=== PATIENT | female | born 1995 | race Asian ===

== ENCOUNTER 2024-10-18 17:17 | Emergency (ER) | payer OTHER ==
[~2024-10-18] VITALS: Ht 152.4 cm; Wt 43.2 kg
[2024-10-18 17:26] VITALS: BP 109/76; PULSE 95; RESP 16; O2SAT 99
--- NOTE | 2024-10-18 18:04 | Physician Documentation ---
History of Present Illness ~ Chief Complaint: Mechanical Fall Stated Complaint: FALL Time Seen by MD: 17:38 Primary Medical Doctor: joseph MOSS Patient is seen today with complaints of having slipped and fallen and hitting her lower lip on a rock while hiking [place] with her boyfriend. Patient states her lower lip is quite swollen and has a laceration just inferior to her lower lip. Patient has no other concern or complaint at this time. Tetanus within 5 Years?: No Medication Reconciliation Allergies: Coded Allergies: No Known Allergies (Unverified , 10/18/24) Review of Systems Constitutional: Denies: chills, fever, weakness Eyes: Denies: pain, blurred vision ENT: Denies: ear pain, nose pain, throat pain, mouth pain Respiratory: Denies: cough, shortness of breath Cardiovascular: Denies: chest pain, palpitations Gastrointestinal: Denies: abdominal pain, nausea, vomiting Genitourinary: Denies: burning, dysuria Female Genitalia: Denies: vaginal discharge, pelvic pain Neurological: Denies: headache, dizziness Musculoskeletal: Denies: pain, swelling Integumentary: Denies: rash, lesions Allergic/Immunologic: Denies: hives, itching Hematologic/Lymphatic: Denies: no symptoms reported Psychiatric: Denies: depression, anxiety Physical Exam Vital Signs: Temperature: 98.1, Source: Temporal, Heart Rate: 95, Respiratory Rate: 16, BP: 109/76, Pulse Oximetry: 99, Weight: 43.180 Oxygen Flow Rate: 0 Physical Exam General: Awake and Alert, no acute distress. HEENT: Conjunctiva pink, Sclera clear, Mucus Membranes moist. Neck: Supple without masses and tenderness. Resp: Unlabored. Lungs clear to auscultation bilaterally. Heart: Regular Rate and rhythm, normal S1 and S2 without murmur, rub or gallop. Musculoskeletal: Patient on exam does have some superficial bruising and very mild swelling of the right anterior knee with mild abrasion. Patient has full flexion and extension of the right knee and is able to bear weight and has mild tenderness to palpation anteriorly of the patella and proximal tibia. Patient is neurovascularly intact distally. Motor function intact distally. Extremities: No cyanosis,clubbing or edema. Skin: Patient on exam does have 2 cm laceration, with involvement of the juliann border, that is shaped has a half robinson just inferior to lower lip. There is no active bleeding. Edges are not well approximated at this time. Procedures Laceration Repair : Procedure Note Procedure note: 5 cc of 1% lidocaine with epinephrine was used to achieve local anesthesia of the 2 cm laceration just inferior to the lower lip which did involve the juliann border. Patient tolerated well. Laceration was irrigated with copious amounts of normal saline and iodine mixture. Five simple sutures were placed to achieve closure with special care to align the juliann border. Adhesive bandages placed over repair site. Progress Results/Orders Results/Orders Completed Orders - CARLOS BRUCE PAC Lidocaine 1% W/Epi 1:100,000 (Xylocaine (10/18/24 17:59) Vital Signs 10/18/24 17:26 Temp 98.1 Pulse 95 Resp 16 B/P (MAP) 109/76 Pulse Ox 99 O2 Flow Rate 0 Medical Decision Making Findings Patient is seen today with complaints of having slipped and fallen and hitting her lower lip on a rock while hiking [place] with her boyfriend. Patient states her lower lip is quite swollen and has a laceration just inferior to her lower lip. Patient has no other concern or complaint at this time. Patient also complains of some right knee pain that she hurt during her fall but states she is able to bear weight and does not want an x-ray today. She has no other concern or complaint at this time. Patient did have five simple sutures placed to repair laceration of lower lip with repair of the juliann border. Patient will have sutures removed in 7-10 days. Patient will follow up with primary care at that time or return to the ED. Patient will return to ED with any worsening, concerning or changing symptoms. Patient may take Tylenol and/or ibuprofen for pain relief. Departure Disposition: HOME / SELF CARE / HOMELESS Impression: Primary Impression: Laceration of vermilion border of lower lip Qualified Codes: S01.511A - Laceration without foreign body of lip, initial encounter Condition: Improved Discharge Instructions: Facial Laceration, [id number] Additional Instructions: Patient did have five simple sutures placed to repair laceration of lower lip with repair of the juliann border. Patient will have sutures removed in 7-10 days. Patient will follow up with primary care at that time or return to the ED. Patient will return to ED with any worsening, concerning or changing symptoms. Patient may take Tylenol and/or ibuprofen for pain relief. Referrals: NO PRIMARY CARE PROVIDER (PCP) Signature Scribe Signature: No scribe Attestation: No scribe CARLOS BRUCE PAC Oct 18, 2024 18:04
[2024-10-18] MEDS: LIDOcaine 1% W/epiNEPHrine 1:100,000 20ml vial SQ STA (18:07)
[2024-10-18 19:58] VITALS: TEMP 98.1
== END 2024-10-18 20:03 | disposition home or self-care (01) ==
LOC: ER 17:18
DX: S01.511A Laceration without foreign body of lip, initial encounter (principal); W01.0XXA Fall on same level from slipping, tripping and stumbling without subsequent striking against object, initial encounter; Y93.01 Activity, walking, marching and hiking; Y92.89 Other specified places as the place of occurrence of the external cause; Y99.8 Other external cause status
CPT/HCPCS: 12011; 40650; 99284; A6449